=== PATIENT | female | born 1965 | race Hispanic/Latino ===

== ENCOUNTER 2020-08-28 05:30 | Observation (INO) | payer BC ==
[2020-08-27 12:35] LABS: BASOPHILS % (AUTO) 0.4 % (0.0-5.0); EOSINOPHILS % (AUTO) 3.3 % (0.0-8.0); HEMATOCRIT 43.4 % (36-48); LYMPHOCYTES % (AUTO) 38.6 % (21.0-51.0); MEAN CORPUSCULAR HEMOGLOBIN 32.2 pg (27.0-33.0); MEAN CORPUSCULAR HGB CONC 33.6 g/dL (32.0-36.0); MEAN CORPUSCULAR VOLUME 95.8 fL (79-99); MONOCYTES % (AUTO) 7.4 % (3.0-13.0); PLATELET COUNT (AUTO) 256 K/uL (130-400); RED BLOOD CELL COUNT(AUTO) 4.53 MIL/uL (4.00-5.50); RED CELL DISTRIBUTION WIDTH 13.3 % (11.0-15.5); WHITE BLOOD COUNT (AUTO) 6.9 K/uL (4.8-10.8)
[2020-08-27 14:33] VITALS: BP 136/59
[~2020-08-28] VITALS: Ht 157.5 cm; Wt 109.4 kg
[2020-08-28] VITALS (24 sets, daily range): BP systolic 110–164; BP diastolic 44–86
[~2020-08-28 05:30] MED LIST: FAMO-136 PO; ICOS1CAP PO; ROSU10TA28 PO
[2020-08-28] MEDS ORDERED: CEFAZOLIN 3GM /D5W 100ML 100 ML IV SCH (06:00)
[2020-08-28] MEDS ORDERED: LACTATED RINGERS 1000ML 1,000 ML IV SCH (06:00)
[2020-08-28] MEDS ORDERED: CEFAZOLIN SODIUM 1 GM VIAL ONE (07:43)
[2020-08-28] MEDS ORDERED: LACTATED RINGERS 1000ML 1,000 ML IV ONE (07:43)
[2020-08-28] MEDS ORDERED: LIDOCAINE PF 2% 5ML ABBOJECT ONE (08:16)
[2020-08-28] MEDS ORDERED: FENTANYL CITRATE PF 50 MCG/1 ML 2ML VIAL ONE ×2 (08:17→09:30)
[2020-08-28] MEDS ORDERED: NEOSTIGMINE 5MG/5ML SYR IV ONE (08:17)
[2020-08-28] MEDS ORDERED: PROPOFOL 10 MG/ML 20ML VIAL IV ONE (08:17)
[2020-08-28] MEDS ORDERED: MIDAZOLAM HCL 1 MG/ML 2ML VIAL ONE ×2 (08:17→08:54)
[2020-08-28] MEDS ORDERED: ONDANSETRON HCL 4 MG/2 ML VIAL ONE (08:17)
[2020-08-28] MEDS ORDERED: GLYCOPYRROLATE 1 MG/5 ML SYRINGE ONE (08:17)
[2020-08-28] MEDS ORDERED: ROCURONIUM 10MG/1ML SYR 10 MG/ML ML ONE (08:17)
[2020-08-28] MEDS ORDERED: DEXAMETHASONE SOD PHOSPHATE 10MG/ML 1ML VIAL ONE (08:17)
[2020-08-28] MEDS ORDERED: MEPERIDINE-PF 25 MG/ML SYG ONE ×3 (08:18→11:24)
[2020-08-28] MEDS ORDERED: PROMETHAZINE HCL 25 MG/ML 1ML AMPULE IM PRN ×2 (12:15)
[2020-08-28] MEDS ORDERED: IBUPROFEN 600 MG TABLET PO PRN (12:15)
[2020-08-28] MEDS ORDERED: SIMETHICONE 80 MG TAB.CHEW PO PRN (12:15)
[2020-08-28] MEDS ORDERED: ACETAMINOPHEN-CODEINE 300/30MG TAB PO PRN (12:15)
[2020-08-28] MEDS ORDERED: ONDANSETRON HCL 4 MG/2 ML VIAL IVP PRN (12:15)
[2020-08-28] MEDS ORDERED: DOCUSATE SODIUM 100 MG CAP PO PRN (12:15)
[2020-08-28] MEDS ORDERED: MEPERIDINE-PF 75 MG/ML SYG IM PRN (12:15)
[2020-08-28] MEDS ORDERED: BISACODYL 10 MG SUPP.RECT RC PRN (12:15)
[2020-08-28] MEDS ORDERED: MEPERIDINE-PF 75 MG/ML SYG ONE (12:33)
[2020-08-28] MEDS: DEXTROSE 5 %-0.45 % NACL 1,000 ML IV PRN ×2 (12:47→19:39)
[2020-08-28] MEDS ORDERED: SIMETHICONE 80 MG TAB.CHEW ONE (23:42)
[2020-08-29 03:43] VITALS: BP 129/75
[2020-08-29] MEDS: DEXTROSE 5 %-0.45 % NACL 1,000 ML IV PRN (03:47)
[2020-08-29 05:27] LABS: HEMATOCRIT 41.7 % (36-48); MEAN CORPUSCULAR HEMOGLOBIN 31.3 pg (27.0-33.0); MEAN CORPUSCULAR HGB CONC 32.6 g/dL (32.0-36.0); MEAN CORPUSCULAR VOLUME 96.1 fL (79-99); RED BLOOD CELL COUNT(AUTO) 4.34 MIL/uL (4.00-5.50); RED CELL DISTRIBUTION WIDTH 13.2 % (11.0-15.5); WHITE BLOOD COUNT (AUTO) 16.8 K/uL (4.8-10.8)
[2020-08-29 07:21] VITALS: BP 166/76
[2020-08-29] MEDS ORDERED: SIMETHICONE 80 MG TAB.CHEW ONE (07:37)
[2020-08-29] MEDS ORDERED: DOCUSATE SODIUM 100 MG CAP PO ONE (07:38)
[2020-08-29] MEDS ORDERED: IBUPROFEN 600 MG TABLET ONE (07:38)
[2020-08-29] MEDS ORDERED: FAMOTIDINE 20MG TAB 20 MG TAB PO SCH (08:15)
[2020-08-29 11:32] VITALS: BP 138/66
== END 2020-08-29 15:00 | disposition home or self-care (01) ==
LOC: DAH 05:30 → DAHIP 05:31 → DAH 05:31 → WSH 12:00
PROVIDERS: ADMIT Obstetrics & Gynecology; ATTEND Obstetrics & Gynecology
DX: N95.0 Postmenopausal bleeding (principal); Z20.822 Contact with and (suspected) exposure to COVID-19; N84.0 Polyp of corpus uteri; K46.9 Unspecified abdominal hernia without obstruction or gangrene
CPT/HCPCS: 36415 ×2; 58263; 85025; 85027; 86850; 86900; 86901; 96360; 96361 ×2; 96372; A4215; A4216; A4221; A4222; A4223; A4351; A4510; A4600; A4606; A4663; A4930 ×2; A6260; C9803; G0378 ×33; J0690; J1100; J2001; J2175 ×4; J2250 ×2; J2405; J2704; J2710; J3010 ×2; J3490; J7120 ×2; U0003